=== PATIENT | female | born 1970 | race Caucasian/White ===

== ENCOUNTER 2020-04-22 01:50 | Emergency (ER) | payer SELFPAY ==
[~2020-04-22] VITALS: Ht 160 cm; Wt 69.9 kg
[2020-04-22] MEDS ORDERED: LEVO88TA2 PO (01:57)
[2020-04-22] MEDS ORDERED: CEphaleXIN 500 MG CAPSULE ONE (02:26)
[2020-04-22] MEDS ORDERED: SODIUM BICARBONATE 4.2 % (NEUT) 5 ML VIAL TP ONE (02:30)
[2020-04-22] MEDS ORDERED: LIDOCAINE 1%-EPI 1:100,000 20 ML VIAL IJ ONE (02:30)
[2020-04-22] MEDS ORDERED: CEphaleXIN 500 MG CAPSULE PO ONE (02:30)
[2020-04-22 02:51] VITALS: BP 120/70
== END 2020-04-22 02:51 | disposition home or self-care (01) ==
LOC: ER 01:54
DX: S61.412A Laceration without foreign body of left hand, initial encounter (principal); W26.0XXA Contact with knife, initial encounter; Y93.G1 Activity, food preparation and clean up; Y92.89 Other specified places as the place of occurrence of the external cause; E03.9 Hypothyroidism, unspecified; Z79.890 Hormone replacement therapy
CPT/HCPCS: A4217; A4663; J3490